=== PATIENT | male | born 1960 | race Caucasian/White ===

== ENCOUNTER 2016-12-12 07:56 | Inpatient (IN) ==
--- NOTE | 2016-12-12 08:32 | PROVIDER DOCUMENTATION ---
HPI-General Adult - General Chief Complaint: Back Pain Stated Complaint: BACK PAIN Time Seen by Provider: 12/12/16 08:26 Source: patient, family Allergies/Adverse Reactions: Patient Allergies Allergy/AdvReac Type Severity Reaction Status Date / Time Penicillins Allergy ANAPHYLAXIS Verified 12/12/16 08:07 Home Medications: Home Medication List Medication Instructions Recorded Confirmed Last Taken Type Morphine E.r. [Ms Contin] 10 mg PO DIRECTED 12/12/16 12/12/16 Unknown History Morphine E.r. [Ms Contin] 60 mg PO Q12HR 12/12/16 12/12/16 Unknown History Morphine E.r. [Ms Contin] 100 mg PO Q12HR 12/12/16 12/12/16 Unknown History Ondansetron HCl [Zofran] 4 mg PO DIRECTED 12/12/16 12/12/16 Unknown History - History of Present Illness -Gen Adult Nature of Presenting Problems: pt is having much pain and was at Dr Acuña's office yesterday and he is not getting relief. he is taking his morning pain medication right now, but needs something else. Dr Acuña was consulted and he said to admit for pain control and radiation rx for pain control Similar Symptoms Previously?: Yes (seen yesterday in oncology) Recently seen or treated by another doctor?: Yes Review of Systems - Adult - REVIEW OF SYSTEMS - ADULT Constitutional: denies: chills, fever Eyes: denies: discharge, blurred vision Ears, Nose, Mouth & Throat: denies: ear pain, nose pain Cardiovascular: denies: chest pain, irregular heart rate Respiratory: denies: chronic cough, shortness of breath Gastrointestinal: denies: abdominal pain, constipation, diarrhea, nausea, vomiting Genitourinary: denies: discharge, flank pain, hesitency Musculoskeletal: denies: back pain, joint pain, neck pain Integumentary: denies: hair loss, mole changes Neurological: denies: ataxia, numbness Psychiatric: reports: no symptoms reported Endocrine: denies: goiter, cold intolerance, heat intolerance Hematologic/Lymphatic: denies: low blood count, lymphedema Allergic/Immunologic: denies: eczema, frequent infections Past History - Adult - PAST MEDICAL HISTORY-ADULT Review of Records: reports: Nursing Assessment Review, Medications Reviewed - FAMILY HISTORY Family History: other (lymph node bx) Physical Exam-General - PHYSICAL EXAM-ADULT Initial Vital Signs Reviewed: Yes - CONSTITUTIONAL General Appearance: appears well, alert, severe distress - EYES Eyes: PERRL/EOMI, pink conjunctivae - HEAD, EARS, NOSE, MOUTH & THROAT HENMT: normocephalic/atraumatic, moist mucous membranes, normal ENT inspection, TMs normal - NECK Neck: non-tender, full range of motion, supple - RESPIRATORY Respiratory: chest non-tender, lungs clear, normal breath sounds, no pleuratic chest pain, no respiratory distress, no accessory muscle use - CARDIOVASCULAR Cardiovascular: normal peripheral pulses, regular rate, rhythm, no edema, no gallop, no JVD, no murmur - GASTROINTESTINAL (ABDOMEN) Abdominal Exam: normal bowel sounds, non tender, soft, no organomegaly, no pulsatile mass - LYMPHATIC Lymphatic: no adenopathy - MUSCULOSKELETAL Back Exam: normal inspection, no CVA tenderness, other (severe back pain with vertebral mets areas marked on back) - SKIN Integumentary: normal color, normal turgor, warm/dry - NEUROLOGIC Neurologic: knife grinder II-XII nml as tested, grossly normal, no motor/sensory deficits - PSYCHIATRIC Psych/Mental Status: normal mood/affect, normal thought content, normal thought process, oriented x 3 Progress - PLAN OF CARE/RESULTS Progress/Plan/Lab Results: Vital Signs - 8 hr 12/12/16 08:02 Temperature 97.3 F L Pulse Rate 73 Respiratory Rate 18 Blood Pressure 185/113 O2 Sat by Pulse Oximetry 96 - CONSULTS/PCP/HOSPITALIST Notification #1 *Consult/PCP/Hospitalist*: Dr Acuña Time Discussed: 08:52 Consult Disposition: Admit (needs to be given pain control and get radiation therapy consult FELY) #2 Consult: Dr Norris Time Discussed: 09:04 Consult Disposition: Admit Departure - Departure Date of Disposition Decision: 12/12/16 Time of Disposition Decision: 09:06 DIAGNOSIS: Bone metastasis Melanoma Qualifiers: Melanoma location: unspecified site Qualified Code(s): C43.9 - Malignant melanoma of skin, unspecified Disposition: ADMITTED INPATIENT Certified Medical Emergency: Emergent Condition: Fair Referrals and Follow-Ups: Roderick Albrecht MD [Primary Care Provider] - - Critical Care Note This patient required my direct & personal management of CC.: No Attestation - Physician/ LAITH Attestation The physician spent face to face time with patient:: Yes Advanced Practice Provider documentation review:: Supervising physician onsite and consulted in the evaluation and care of this patient. The physician did have a face to face encounter with the patient.
[2016-12-12] MEDS ORDERED: NS 1,000 ML IV ONE (08:49)
[2016-12-12] MEDS ORDERED: MORPHINE IV ONE (08:49)
[2016-12-12] MEDS ORDERED: ZOFRAN IV ONE (08:50)
[2016-12-12 09:39] LABS: AGAP 9; ALBUMIN 3.5 g/dL (3.5-5.0); ALKALINE PHOSPHATASE 120 U/L (32-122); BUN 13 mg/dL (8-22); CALCIUM 9.1 mg/dL (8.8-10.2); CHLORIDE 97 mmol/L (98-107); COSMO 271; GOT 21 U/L (10-34); GPT 27 U/L (10-44); POTASSIUM 3.4 mmol/L (3.5-5.1); SODIUM 135 mmol/L (136-145); TCO2 29 mmol/L (25-35); TOTAL PROTEIN 6.7 g/dL (6.3-8.3)
[2016-12-12] MEDS ORDERED: DILAUDID IV ONE (10:19)
[2016-12-12 12:08] LABS: MANUAL DIFF NEEDED? NO
[2016-12-12 12:09] LABS: BASO% 0.4 % (0.0-0.8); EOS# 0.64 X1000 (0.0-0.7); EOS% 6.2 % (0.0-10.0); HEMATOCRIT 43.7 % (42.0-52.0); HEMOGLOBIN 14.4 g/dL (14.0-18.0); IMM GRAN# 0.03 X1000 (0.0-0.04); IMM GRAN% 0.3 % (0.0-0.5); LYMPH# 1.33 X1000 (1.2-3.4); LYMPH% 12.8 % (20.5-51.1); MCH 30.3 PG (27-31); MONO# 1.15 X1000 (0.11-0.59); MONO% 11.1 % (1.7-9.3); MPV 10.4 FL (7.4-10.4); NEUT% 69.2 % (42.2-75.2); PLT 241 X1000 (130-400); RBC 4.75 XMIL (4.7-6.1)
[2016-12-12] MEDS ORDERED: PHENERGAN IV PRN (12:13)
[2016-12-12] MEDS ORDERED: SODIUM CHLORIDE 0.9% INJ PRN (12:13)
[2016-12-12] MEDS ORDERED: DILAUDID IV PRN (12:13)
[2016-12-12] MEDS ORDERED: ZOFRAN IV PRN (12:14)
[2016-12-12] MEDS ORDERED: SODIUM CHLORIDE 0.9% INJ SCH (12:15)
[2016-12-12] MEDS ORDERED: PROTONIX IV SCH (12:15)
[2016-12-12] MEDS ORDERED: MS CONTIN PO SCH ×2 (12:30→12:59)
[2016-12-12 12:56] LABS: AGAP 9; ALBUMIN 3.6 g/dL (3.5-5.0); ALKALINE PHOSPHATASE 125 U/L (32-122); BUN 12 mg/dL (8-22); CALCIUM 9.4 mg/dL (8.8-10.2); CHLORIDE 97 mmol/L (98-107); COSMO 273; GOT 18 U/L (10-34); GPT 26 U/L (10-44); MAGNESIUM 1.8 mg/dL (1.5-2.7); POTASSIUM 3.7 mmol/L (3.5-5.1); SODIUM 136 mmol/L (136-145); TCO2 30 mmol/L (25-35); TOTAL PROTEIN 7.1 g/dL (6.3-8.3)
[2016-12-12] MEDS ORDERED: ZOFRAN 16 MG in NS 50 ML IV SCH (13:00)
[2016-12-12] MEDS ORDERED: MS CONTIN PO ONE (13:23)
[2016-12-12] MEDS: MORPHINE IV PRN ×5 (17:38→23:50)
--- NOTE | 2016-12-12 19:54 | HISTORY AND PHYSICAL ---
CHIEF COMPLAINT: Back pain. HISTORY OF PRESENT ILLNESS: This is a 56-year-old male with a history of metastatic malignant melanoma with bony metastases. He presents to the emergency room complaining of severe back pain. Mr. Funez is a patient of Dr. Acuña and his pain has been controlled on MS Contin, although over the past 3-4 days he has been in a pain crisis, which required increasing his morphine. With this increase, he had intractable nausea and vomiting. He was seen at Dr. Acuña's office, given IV Zofran as well as IV fluids yesterday. Pain was brought under control and he went home comfortable. Through this morning, his pain returned. Therefore, he presented to the emergency room. He was given 10 mg of morphine IV, followed by 2 of Dilaudid and at the time of my interview, the patient is asleep and history is taken from the chart, Dr. Acuña and the patient's son. PAST MEDICAL HISTORY: 1. Metastatic malignant melanoma. 2. Pre-diabetes. PAST SURGICAL HISTORY: Appendectomy, cholecystectomy, biopsy. HABITS: Tobacco use. ALLERGIES: Penicillins which cause anaphylaxis. HOME MEDICATIONS: Zofran 4 mg as directed. MS Contin 160 mg every 12 hours with 10 mg as directed. REVIEW OF SYSTEMS: A 14 point review of systems with pertinent positives stated in the HPI. All others are negative per the patient's family members and chart. PHYSICAL EXAMINATION: GENERAL: This is a 56-year-old male who is lying in the bed asleep at present. VITAL SIGNS: Blood pressure is 170/90, with a heart rate of 70, respirations are 18, temperature is 98.9 degrees with room air saturations 93-95%. CARDIOVASCULAR: Regular rate and rhythm. S1 and S2 appreciated. No rubs, murmurs, or gallops. PULMONARY: Breath sounds are clear. No increased work of breathing noted. Chest does rise and fall symmetrically to respiration. GASTROINTESTINAL: Abdomen is soft, nondistended, with bowel sounds in all 4 quadrants. EXTREMITIES: No clubbing, cyanosis, or edema. Pulses are palpable x4. SKIN: Warm and dry with good turgor. DIAGNOSTICS: WBC is 10.3 with hemoglobin 14.4, hematocrit 43.7, and platelets of 241,000. Sodium is 136, potassium 3.7, BUN 13, creatinine 0.7 with a glucose of 116. ASSESSMENT AND PLAN: 1. Metastatic malignant melanoma with metastasis. 2. Severe back pain secondary to #1. 3. Nausea and vomiting secondary to pain. 4. History of pre-diabetes. 5. Tobacco use. CONSULTATION: I did speak to Dr. Acuña. We discussed the patient's plan of care. We have increased his MS Contin to 210 mg q.12 hours scheduled with morphine 10 mg IV p.r.n. breakthrough. We will continue with IV hydration. Give Zofran 16 mg IV every 12 hours scheduled with Phenergan 12.5 q.4 hours p.r.n. we will give Protonix. We will also continue IV hydration. We will trend labs. We will consult Dr. Soumya Ribeiro for radiation therapy which Dr. Acuña feels will assist with pain control. Further treatments pending hospital course. Dictated by NGUYEN Irizarry for Eugene Norris MD cc: NGUYEN Irizarry MD
[2016-12-12] MEDS: ZOFRAN 16 MG in NS 50 ML IV SCH (23:50)
[2016-12-13] MEDS: MORPHINE IV PRN ×7 (00:51→10:44)
[2016-12-13 06:42] LABS: HEMATOCRIT 42.7 % (42.0-52.0); HEMOGLOBIN 14.4 g/dL (14.0-18.0); MCHC 33.7 g/dL (33-37); MPV 9.6 FL (7.4-10.4); RBC 4.64 XMIL (4.7-6.1)
[2016-12-13 06:52] LABS: AGAP 12; BUN 12 mg/dL (8-22); CALCIUM 9.2 mg/dL (8.8-10.2); CHLORIDE 96 mmol/L (98-107); COSMO 272; POTASSIUM 3.7 mmol/L (3.5-5.1); SODIUM 136 mmol/L (136-145); TCO2 28 mmol/L (25-35)
[2016-12-13] MEDS: MS CONTIN PO SCH ×2 (09:57→21:27)
[2016-12-13] MEDS ORDERED: DILAUDID IV ONE ×3 (11:14→17:48)
[2016-12-13] MEDS: DILAUDID IV PRN ×8 (12:10→17:12)
[2016-12-13] MEDS: DECADRON IV SCH ×2 (12:53→21:28)
[2016-12-13] MEDS: CYMBALTA PO SCH (12:53)
[2016-12-13] MEDS ORDERED: PNEUMOVAX 23 IM ONE (14:54)
--- NOTE | 2016-12-13 14:54 | PROGRESS NOTE ---
DATE: 12/13/2016 Today Mr. Funez refers to be doing a little better. Has been evaluated by both Dr. Acuña and radiation oncologist and there is a plan to get him radiation today. OBJECTIVE: Vital signs: Blood pressure is 176/101, respirations 16, pulse is 75, temperature 98.6 degrees. General: Mr. Funez is a 56-year-old male. He is in bed, not seemingly distress. HEENT: Mucosa is pink and moist. Anicteric. Acyanotic. Neck: Supple. Chest: Clear. Cardiovascular: Regular rate and rhythm. Abdomen: Soft, nontender. Extremities: No pedal edema. CIVIL RIGHTS ATTORNEY: Patient is awake. Alert and oriented. There is no focal neurological deficit. Musculoskeletal: Patient does have extreme pain in the left shoulder. LABORATORY DATA: WBC is 9.67, hemoglobin is 14.4, platelet count of 230,000. Chemistry is 136, potassium is 3.7, chloride is 96, bicarbonate is 28. ASSESSMENT: 1. Intractable musculoskeletal pain secondary due to bone metastasis. 2. Metastatic malignant melanoma. 3. Tobacco use. 4. Nausea, vomiting secondary to pain medications. 5. Chronic pain syndrome. So today Mr. Funez has been started on Dilaudid 2 mg every 30 minutes by the oncologist who is to trying help with his intractable pain. He is also on MS Contin 210 p.o. q.12. The patient is going to get radiation this afternoon and will follow up with further recommendations from the other subspecialties. Will discuss with Dr. Acuña about the possibility of putting the patient on fentanyl patch to help with the pain management. cc: Misael Fitzgerald MD
[2016-12-13] MEDS: SODIUM CHLORIDE 0.9% INJ SCH (15:43)
[2016-12-13] MEDS: PROTONIX IV SCH (15:43)
--- NOTE | 2016-12-13 15:59 | CONSULTATION ---
DATE OF CONSULTATION: 12/13/2016 REASON FOR CONSULTATION: The patient is known to us for metastatic melanoma. HISTORY OF PRESENT ILLNESS: This patient that is known to us with history of metastatic melanoma with bony metastases, recently started on Yervoy and Opdivo. He received his 1st dose on 12/04/16. He was seen at our clinic on the 8th of this month after having severe pain and nausea. He had been taking at home MS Contin 160 mg b.i.d. and Dilaudid on a p.r.n. basis. In the clinic he was in severe pain and he was given some IV morphine and Ativan as well as some normal saline and Zofran. His symptoms improved and patient was sent home. However, he returned to the emergency room the following day with worsening pain mostly to his back area. He also had some intractable nausea and vomiting. Denies fevers, chills, new lumps, bumps, bone pain. Patient is currently being controlled for his pain by his MS Contin which has been increased to 210 mg q.12 hours. He has been on morphine 10 mg IV q.1 hour p.r.n. We have now added Dilaudid 2 mg every 30 minutes p.r.n. He is also getting Phenergan, Protonix and Zofran as scheduled. He has also been evaluated by Radiation Oncology and is to begin radiation therapy to his T-spine today. REVIEW OF SYSTEMS: Negative unless indicated in the HPI. PAST MEDICAL HISTORY: Metastatic melanoma to the bones with bony metastases. He has had 1 dose of Yervoy and Opdivo. Intractable pain and nausea. SOCIAL/FAMILY HISTORY: Patient has good family support. 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 Denies alcohol or illicit drug use. ALLERGIES: Penicillin, which is anaphylactic reaction. MEDICATIONS: MS Contin and Zofran. PHYSICAL EXAMINATION: General: This is a male, who is frail, chronically ill- appearing. Vital Signs: Stable. Cardiovascular: S1, S2 audible to auscultation with no heaves, lifts, thrills. Pulmonary: Breath sounds clear. Normal respiratory effort. Abdomen: Soft, nondistended. Positive bowel sounds. Skin: No petechiae, ecchymosis or bruising. Extremities: There is no edema. Musculoskeletal: Moves all extremities. Neurologic: Alert and oriented x3. Psychiatric: Appropriate to the situation. DIAGNOSTIC DATA: WBC is 9.67, hemoglobin 14.4, hematocrit 42.7, platelet count 230,000. Sodium 136, potassium 3.7, BUN 12, creatinine 0.7. ASSESSMENT AND PLAN: 1. Metastatic melanoma with bony metastases. He has had 1 dose Opdivo and Yervoy. Radiation Oncology has seen the patient and is planning to begin urgent radiation therapy today. Patient is also getting IV Decadron. 2. Intractable pain. Continue Ms Contin, IV morphine and IV Dilaudid. Also plans for radiation as above. We will continue to follow and monitor closely. 3. Nausea. Continue scheduled Zofran and Phenergan. Dictated by NGUYEN Pink for Bruno Acuña MD cc: NGUYEN Pink MD [facility]
[2016-12-13] MEDS ORDERED: NARCAN IV PRN (18:06)
[2016-12-13] MEDS: DILAUDID PCA VIAL IV PRN ×2 (18:26→23:42)
[2016-12-13] MEDS: LR 1,000 ML IV SCH (18:26)
[2016-12-13] MEDS ORDERED: DILAUDID IV PRN (19:40)
[2016-12-13] MEDS: ZOFRAN 16 MG in NS 50 ML IV SCH (23:04)
[2016-12-14] MEDS: SODIUM CHLORIDE 0.9% INJ PRN ×2 (03:15→20:56)
[2016-12-14] MEDS: PHENERGAN IV PRN ×3 (03:15→20:55)
[2016-12-14] MEDS: DECADRON IV SCH ×3 (05:21→20:56)
[2016-12-14] MEDS: DILAUDID PCA VIAL IV PRN ×2 (06:24→19:08)
[2016-12-14] MEDS: DILAUDID IV PRN ×5 (07:02→18:48)
[2016-12-14] MEDS: CATAPRES PO PRN ×2 (09:03→20:47)
[2016-12-14] MEDS: LIDODERM TOP PRN (10:03)
[2016-12-14] MEDS: MS CONTIN PO SCH ×2 (10:18→20:47)
[2016-12-14] MEDS: CYMBALTA PO SCH (10:34)
[2016-12-14] MEDS: PROTONIX IV SCH (13:35)
--- NOTE | 2016-12-14 14:37 | PROGRESS NOTE ---
DATE: 12/14/2016 Today Mr. Funez referred to be doing a little better. However early on this morning they said his blood pressures have been very high. The patient is currently on a PROFESSOR OF VISUAL ARTS pump with Dilaudid because of very uncontrolled pain. OBJECTIVE: Blood pressure is 185/103, pulse of 70, respirations 14, temperature is 98.3 degrees.General: Mr. Funez is a 56-year-old male. He is in bed, semi drowsy due to medications. HEENT: Mucosa is pink and moist. Anicteric. Acyanotic. Neck: Supple. Chest: Clear. Cardiovascular: Regular rate and rhythm. There is no murmurs, no rubs. Abdomen: Soft, nontender. Extremities: No pedal edema. MAINTENANCE MGR: Patient is drowsy but easily arousable. Follows commands and sustains rational conversation. LABORATORY DATA: There is no lab work for today. CURRENT MEDICATIONS INCLUDE: 1. Klonopin. 2. Decadron 4 mg IV q.8. 3. Cymbalta 60 mg once daily. 4. PROFESSOR OF VISUAL ARTS pump with Dilaudid. 5. Lactate ringers. 6. Phenergan p.r.n. So today I spoke extensively with the sister for Mr. Funez, the son and another family member who was in the room and the sister was very vocal and seems to know a lot about Mr. Funez's disease and is of the opinion that Mr. Funez is probably hurting and I think we all on the page that he will probably be needing some form of line to go home with since he has been on so much pain medication and he does not seems to be controlled. ASSESSMENT: 1. 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 2. Metastatic malignant melanoma. 3. Tobacco abuse. 4. Nausea and vomiting secondary to pain medications. 5. Chronic pain syndrome. 6. Hypertension likely secondary to intractable pain. We are going to continue with the current medications. I have discussed this extensively with Dr. Acuña who is the oncologist involved. cc: Misael Fitzgerald MD
[2016-12-14] MEDS: LR 1,000 ML IV SCH (18:45)
[2016-12-14] MEDS: ZOFRAN 16 MG in NS 50 ML IV SCH (23:07)
[2016-12-15] MEDS: PHENERGAN IV PRN ×6 (02:38→22:19)
[2016-12-15] MEDS: SODIUM CHLORIDE 0.9% INJ PRN ×6 (02:39→22:19)
[2016-12-15] MEDS: DECADRON IV SCH ×3 (04:18→20:49)
[2016-12-15] MEDS: CATAPRES PO PRN (04:18)
[2016-12-15] MEDS: DILAUDID PCA VIAL IV PRN (07:40)
[2016-12-15] MEDS: DILAUDID IV PRN ×5 (07:55→18:07)
[2016-12-15] MEDS ORDERED: MS CONTIN PO SCH ×2 (09:06→09:26)
[2016-12-15] MEDS ORDERED: NORVASC PO SCH (09:15)
[2016-12-15] MEDS ORDERED: PRINIVIL PO SCH (09:15)
[2016-12-15] MEDS: CYMBALTA PO SCH (09:37)
[2016-12-15] MEDS: SODIUM CHLORIDE 0.9% INJ SCH (12:52)
[2016-12-15] MEDS: PROTONIX IV SCH (12:52)
[2016-12-15] MEDS ORDERED: DURAGESIC 25 MICROGM/HR PATCH TD SCH (14:15)
--- NOTE | 2016-12-15 15:00 | PROGRESS NOTE ---
DATE: 12/15/2016 SUBJECTIVE: Today, Mr. Funez continues to be very obtunded. He, however, said he was doing fine. There was a daughter at the bedside at the time of the interview. OBJECTIVE: VITAL SIGNS: Blood pressure is 211/115, pulse 93, respirations 17, temperature 97.9. GENERAL: Mr. Funez is a 56-year-old male. He is in bed and does not seem to be in remarkable distress. HEENT: Mucosa is pink and moist. Anicteric and acyanotic. NECK: Supple. CHEST: Good air entry bilaterally. No crepitations. No rhonchi. CARDIOVASCULAR: Regular rate and rhythm. There are no murmurs, no rubs, no gallops. ABDOMEN: Soft. Nontender. Bowel sounds are present. EXTREMITIES: No pedal edema. CENTRAL NERVOUS SYSTEM: Patient is drowsy. He is, however, able to open his eyes to voice and to command. He occasionally tries to grab things that are not there and he will say certain things that nobody seems to understand. LABORATORY DATA: None for today. ASSESSMENT: 1. Intractable musculoskeletal pain secondary to bony metastases. 2. Metastatic malignant melanoma. 3. Altered mental status, likely due to metabolic encephalopathy. 4. Tobacco abuse. 5. Nausea and vomiting secondary to pain medications. 6. Hypertension. 7. Chronic pain syndrome. Patient is needing a lot of pain medications at this point to keep him comfortable. PLAN: The patient is having nausea and vomiting, which I think is secondary to the narcotics. He gets Phenergan to mitigate this. We are going to switch all his p.o. medications or withhold them just because of the risk of aspiration. We will use fentanyl patch to control the blood pressure and p.r.n. labetalol for that. I have discontinued the MS Contin, which is also p.o., and put him on fentanyl patch 25 mcg per hour and increase accordingly. Patient is on Dilaudid pump, as well. We are going to start the patient on Clinimix with lipid infusion since he has not been able to tolerate any feeding. There is a plan to send the patient to [facility] on Saturday for re-sketching where radiation will be given. We did an EKG this morning, which just showed possible left ventricular hypertrophy, which gives the impression that Mr. Funez probably has a longstanding blood pressure issue that has not been addressed in the past. cc: Misael Fitzgerald MD MTDD
[2016-12-15] MEDS: LIDODERM TOP PRN (15:40)
[2016-12-15] MEDS: LIPOSYN 20% 250 ML IV SCH ×2 (15:40→17:44)
[2016-12-15] MEDS: CLINIMIX E 4.25%-5% SOLUTION 1,000 ML IV SCH ×4 (15:41→18:06)
[2016-12-15] MEDS: CATAPRES-TTS-1 TD SCH (18:03)
[2016-12-16] MEDS: LABETALOL IV PRN (01:52)
[2016-12-16] MEDS: CLINIMIX E 4.25%-5% SOLUTION 1,000 ML IV SCH ×2 (05:23→18:42)
[2016-12-16] MEDS: DECADRON IV SCH ×3 (05:23→21:41)
[2016-12-16] MEDS: DILAUDID PCA VIAL IV PRN (09:10)
--- NOTE | 2016-12-16 11:03 | PROGRESS NOTE ---
DATE: 12/16/2016 HISTORY OF PRESENT ILLNESS: The patient reports that he had a better pain control night. He got out of bed and went to the bathroom with some discomfort, but much manageable. Nurse reports that he has received 39 mg of Dilaudid over the last 24 hours. Due to his nausea, MS Contin has been discontinued, and he was started on a small dose of fentanyl patch yesterday. He has not had a bowel movement so far, but does not feel constipated at this time. PHYSICAL EXAMINATION: General: The patient is lying in bed and appears a little more comfortable than before. Vital Signs: Temperature 97.7 degrees, pulse 75, blood pressure 173/101. HEENT: Eyes anicteric. Mucous membranes appear moist. Cardiac: Regular rate and rhythm. Normal S1, S2. Chest: Clear to auscultation. Abdomen: Soft, nontender, without hepatosplenomegaly or masses. Extremities: Without edema. ASSESSMENT AND PLAN: 1. Metastatic melanoma, recently started on Yervoy/Opdivo. 2. Severe thoracic back pain due to bone metastasis. Started on radiation. 3. Pain management. Discontinue MS Contin due to significant nausea. Increase Duragesic patch to 75 mcg. Continue Dilaudid patient-controlled analgesia as you are doing. 4. Deep venous thrombosis prophylaxis. Start Lovenox. cc: Bruno Acuña MD MTDD
[2016-12-16] MEDS ORDERED: DURAGESIC 50 MICROGM/HR PATCH TD SCH (11:15)
[2016-12-16] MEDS: LOVENOX SUBQ SCH (13:23)
[2016-12-16] MEDS: PROTONIX IV SCH (13:24)
[2016-12-16] MEDS: SODIUM CHLORIDE 0.9% INJ SCH (13:24)
[2016-12-16] MEDS: CYMBALTA PO SCH (13:24)
[2016-12-16] MEDS: LIPOSYN 20% 250 ML IV SCH (13:26)
--- NOTE | 2016-12-16 14:53 | PROGRESS NOTE ---
DATE: 12/16/2016 SUBJECTIVE: Today Mr. Funez referred to be doing a little better, has not had that much of nausea or vomiting. OBJECTIVE: Vital signs: Blood pressure is 153/107, pulse of 80, respirations 16, temperature is 98.1 degrees. General: Mr. Funez is a 56-year-old male. He was in bed. He did not seem to be in any remarkable cardiopulmonary distress. Mucosa is pink and moist. Anicteric and acyanotic. Neck: Supple. Chest: Good air entry bilaterally. No crepitations. No rhonchi. Cardiovascular: Regular rate and rhythm. There are no murmurs, no rubs, no gallops. Abdomen: Soft, nontender. Extremities: No pedal edema. LINE UP EXAMINER: Patient is drowsy, but easily arousable and is able to participate in some rational conversation. LABORATORY DATA: No laboratory work for today. ASSESSMENT: 1. Intractable musculoskeletal pain secondary to bone metastases. Patient is currently on a fentanyl patch. This has been increased to 75 today by his primary oncologist and also on p.r.n. IV medication. 2. Metastatic malignant melanoma. The patient follows up with Dr. Acuña. 3. Altered mental status likely due to metabolic encephalopathy. 4. Tobacco abuse. 5. Nausea, vomiting secondary to pain medication. This has subsided. 6. Hypertension, improved. 7. Chronic pain syndrome. 8. Nutritional needs. Patient is tolerating the IV Clinimix with the lipid infusion. 9. Mr. Funez seems to be doing a little better. Pain patch has been increased. We are going to continue with that. Hopefully we can restart some of his p.o. medications if he tolerates it and eventually take him off the IV pain medications. cc: Misael Fitzgerald MD
[2016-12-16] MEDS: ZOFRAN 16 MG in NS 50 ML IV SCH ×3 (23:20)
[2016-12-17] MEDS: LABETALOL IV PRN (04:40)
[2016-12-17] MEDS: DECADRON IV SCH ×3 (04:40→20:20)
[2016-12-17] MEDS: CLINIMIX E 4.25%-5% SOLUTION 1,000 ML IV SCH ×3 (05:55→19:03)
[2016-12-17] MEDS: DILAUDID PCA VIAL IV PRN ×2 (05:56→13:45)
--- NOTE | 2016-12-17 06:31 | EKG Report ---
Test Performed on : 12/15/2016 10:42:32 AM Test Reason : HTN Blood Pressure : / mmHG Vent. Rate : 092 BPM Atrial Rate : 092 BPM P-R Int : 106 ms QRS Dur : 090 ms QT Int : 394 ms P-R-T Axes : 057 061 055 degrees QTc Int : 487 ms Sinus rhythm. with short DC Possible Left atrial enlargement Nonspecific ST and T wave abnormality Abnormal ECG No previous ECGs available Confirmed by Ruel Grant DO ([id number]) on 12/18/2016 7:22:34 AM
[2016-12-17 06:34] LABS: MANUAL DIFF NEEDED? NO
[2016-12-17 06:51] LABS: BASO% 0.1 % (0.0-0.8); HEMOGLOBIN 15.2 g/dL (14.0-18.0); IMM GRAN# 0.04 X1000 (0.0-0.04); IMM GRAN% 0.3 % (0.0-0.5); LYMPH# 1.21 X1000 (1.2-3.4); LYMPH% 8.9 % (20.5-51.1); MCV 90.9 FL (81-99); MONO# 1.19 X1000 (0.11-0.59); MONO% 8.8 % (1.7-9.3); MPV 9.8 FL (7.4-10.4); NEUT% 81.9 % (42.2-75.2); PLT 280 X1000 (130-400); RBC 5.06 XMIL (4.7-6.1)
[2016-12-17 07:05] LABS: AGAP 12; ALBUMIN 3.5 g/dL (3.5-5.0); ALKALINE PHOSPHATASE 85 U/L (32-122); BUN 27 mg/dL (8-22); CALCIUM 9.4 mg/dL (8.8-10.2); CHLORIDE 93 mmol/L (98-107); COSMO 277; GOT 13 U/L (10-34); GPT 14 U/L (10-44); MAGNESIUM 2.1 mg/dL (1.5-2.7); POTASSIUM 4.1 mmol/L (3.5-5.1); SODIUM 135 mmol/L (136-145); TCO2 30 mmol/L (25-35); TOTAL BILIRUBIN 0.58 mg/dL (0.20-1.00); TOTAL PROTEIN 6.8 g/dL (6.3-8.3)
[2016-12-17 09:02] LABS: INR 1.2; PROTIME 12.8 Seconds (9.2-11.7)
[2016-12-17] MEDS: LOVENOX SUBQ SCH (09:08)
[2016-12-17] MEDS: CYMBALTA PO SCH (09:08)
[2016-12-17] MEDS ORDERED: NS 250 ML ONE (09:40)
[2016-12-17] MEDS: PROTONIX IV SCH (11:33)
[2016-12-17] MEDS: SODIUM CHLORIDE 0.9% INJ SCH (11:34)
[2016-12-17] MEDS: PHENERGAN IV PRN (12:07)
[2016-12-17] MEDS: DILAUDID IV PRN (12:07)
[2016-12-17] MEDS ORDERED: DURAGESIC 50 MICROGM/HR PATCH TD ONE (12:45)
[2016-12-17] MEDS ORDERED: MISC. PHARMACY COMMUNICATION SCH (13:00)
[2016-12-17] MEDS: LIPOSYN 20% 250 ML IV SCH (14:10)
--- NOTE | 2016-12-17 17:27 | PROGRESS NOTE ---
DATE: 12/17/2016 SUBJECTIVE: Today Mr. Funez referred to be doing fairly better than days before. He is not vomiting anymore and he actually requested to see if we can feed him. OBJECTIVE: Vital signs: Blood pressure is 168/105, pulse of 73, respirations 18, temperature is 99.0 degrees. General Examination: Mr. Funez is a 56-year-old male. He was in bed. He does not seem to be in any musculoskeletal distress. HEENT: Mucosa is pink and moist. Anicteric. Acyanotic. Neck: Supple. Chest: Good air entry bilaterally. No crepitations. No rhonchi. Cardiovascular: Regular rate and rhythm. Abdomen: Soft, nontender. Extremities: No pedal edema. ASSEMBLER SURGICAL GARMENT: Patient is more alert today. He is more conversational. I did not see any involuntary jerking movements. LABORATORY DATA: WBC at 13.58, hemoglobin is 15.2, platelet count of 280,000. Chemistry is reviewed. Sodium is 135, potassium is 4.1, chloride is 93. ASSESSMENT: 1. Intractable musculoskeletal pain secondary to bone metastases. Patient is now on fentanyl patch and has being using sparingly the IV medications. 2. Metastatic malignant melanoma. Patient is getting radiation. 3. Altered mental status due to metabolic encephalopathy. This is progressively improving. 4. Tobacco abuse. Patient has been counseled. 5. Nausea and vomiting secondary to pain. Medication is improving. Patient is actually requesting to eat. 6. Hypertension, improved. 7. Chronic pain syndrome. 8. Nutritional needs. The patient is tolerating the CliniMix with the lipid infusion and he was also tolerating liquid diet. We are not going to advance this to a GI soft diet and progressively advance as tolerated. So in general I think Mr. Funez is doing better, currently on 75 mcg of fentanyl patch and on FIRE TRUCK DRIVER, which he uses very sparingly. We are going to continue to progressively wean him off the FIRE TRUCK DRIVER pump and see if we can restart him on the p.o. medications on top of the fentanyl patch. We will start to feed him and gradually advance this as we will cut down on the CliniMix and lipid infusion. cc: Misael Fitzgerald MD
[2016-12-18] MEDS: CLINIMIX E 4.25%-5% SOLUTION 1,000 ML IV SCH ×5 (00:02→21:41)
[2016-12-18] MEDS: DILAUDID PCA VIAL IV PRN ×3 (02:10→21:54)
[2016-12-18] MEDS: DECADRON IV SCH ×3 (04:19→21:43)
[2016-12-18] MEDS: MIRALAX PO SCH (08:59)
[2016-12-18] MEDS: CYMBALTA PO SCH (08:59)
[2016-12-18] MEDS: LOVENOX SUBQ SCH (09:00)
[2016-12-18] MEDS: SODIUM CHLORIDE 0.9% INJ PRN (12:01)
[2016-12-18] MEDS: PROTONIX IV SCH (12:02)
[2016-12-18] MEDS: DILAUDID IV PRN ×3 (12:35→18:48)
[2016-12-18] MEDS: PHENERGAN IV PRN (12:36)
[2016-12-18] MEDS ORDERED: DURAGESIC 100 MICROGM/HR PATCH TD SCH (13:15)
[2016-12-18] MEDS: LIPOSYN 20% 250 ML IV SCH (14:56)
--- NOTE | 2016-12-18 15:38 | PROGRESS NOTE ---
DATE: 12/18/2016 This morning, Mr. Funez looked more alert and more conversational. Expressed a lot of appreciation for all the care that he has received. OBJECTIVE: Vital signs: Blood pressure is 160/100, pulse of 70, respirations 17, temperature 98.7 degrees. General: Mr. Funez is a 56-year-old male. He was in bed. Did not look in any distress. HEENT: Mucosa is pink and moist. Anicteric. Acyanotic. Neck: Supple. Chest: Good air entry bilaterally. No crepitations. No rhonchi. Cardiovascular: Regular rate and rhythm. There is no murmurs. No rubs, no gallops. Abdomen: Soft, nontender. Extremities: No pedal edema. LAST TRIMMER: Patient is awake, alert and conversational. Musculoskeletal: Patient still has mild tenderness and pain to the left shoulder. LABORATORY DATA: None for today. ASSESSMENT: 1. 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 I spoke extensively today with Dr. Acuña who is the patient's Heme-Onc specialist and he has made a decision to go up on the fentanyl patch to 100 mcg in an attempt to wean him off the IV Dilaudid pump. 2. Metastatic malignant melanoma. Patient had a couple sessions of radiation during the hospital stay. 3. Altered mental status due to metabolic encephalopathy. This is improved. 4. Tobacco abuse. Patient has been counseled. 5. Nausea and vomiting secondary to medication side effects improved. 6. Hypertension. This is a lot better. We are still going to make some changes to the medications to have a better blood pressure control. 7. Nutritional needs. Patient is tolerating his GI soft diet. We will be able to advance this to regular diet and gradually also come off the Clinimix. So in general I think Mr. Funez is a lot better today. Fentanyl patch will be increased to 100 and we will also advance his diet to regular diet. Hopefully get him off the Clinimix by tomorrow and await further recommendations from Heme-Onc in terms of the DAIRY NUTRITIONIST pump. cc: Misael Fitzgerald MD
[2016-12-18] MEDS: ZOFRAN 16 MG in NS 50 ML IV SCH ×3 (21:42)
[2016-12-19] MEDS: ZOFRAN 16 MG in NS 50 ML IV SCH (06:14)
[2016-12-19] MEDS: CLINIMIX E 4.25%-5% SOLUTION 1,000 ML IV SCH ×2 (06:15→11:31)
[2016-12-19] MEDS ORDERED: DURAGESIC 100 MICROGM/HR PATCH TD SCH ×2 (08:00→13:46)
[2016-12-19 08:47] LABS: MANUAL DIFF NEEDED? NO
[2016-12-19 08:51] LABS: BASO% 0.1 % (0.0-0.8); EOS# 0.01 X1000 (0.0-0.7); EOS% 0.1 % (0.0-10.0); HEMATOCRIT 43.7 % (42.0-52.0); HEMOGLOBIN 14.1 g/dL (14.0-18.0); IMM GRAN# 0.07 X1000 (0.0-0.04); IMM GRAN% 0.6 % (0.0-0.5); LYMPH# 1.14 X1000 (1.2-3.4); LYMPH% 9.2 % (20.5-51.1); MCH 30.4 PG (27-31); MCHC 32.3 g/dL (33-37); MCV 94.2 FL (81-99); MONO# 1.37 X1000 (0.11-0.59); MPV 10.3 FL (7.4-10.4); PLT 241 X1000 (130-400); RBC 4.64 XMIL (4.7-6.1)
[2016-12-19] MEDS: LOVENOX SUBQ SCH (09:15)
[2016-12-19] MEDS: MIRALAX PO SCH ×2 (09:15→22:13)
[2016-12-19] MEDS: DECADRON IV SCH (09:15)
[2016-12-19] MEDS: CYMBALTA PO SCH (09:15)
[2016-12-19 10:52] LABS: AGAP 12; BUN 28 mg/dL (8-22); CALCIUM 8.8 mg/dL (8.8-10.2); CHLORIDE 97 mmol/L (98-107); COSMO 281; POTASSIUM 4.2 mmol/L (3.5-5.1); SODIUM 138 mmol/L (136-145); TCO2 29 mmol/L (25-35)
[2016-12-19] MEDS: SODIUM CHLORIDE 0.9% INJ SCH (11:30)
[2016-12-19] MEDS: PROTONIX IV SCH (11:30)
[2016-12-19] MEDS: DILAUDID IV PRN ×2 (12:18→13:56)
[2016-12-19] MEDS ORDERED: DURAGESIC 100 MICROGM/HR PATCH TD ONE ×2 (13:47→14:11)
[2016-12-19] MEDS: SODIUM CHLORIDE 0.9% INJ PRN (13:57)
[2016-12-19] MEDS: PHENERGAN IV PRN (13:57)
[2016-12-19] MEDS: DILAUDID PCA VIAL IV PRN (15:09)
[2016-12-19] MEDS: DULCOLAX PO SCH (15:27)
[2016-12-19] MEDS ORDERED: LR 1,000 ML ONE (15:35)
--- NOTE | 2016-12-19 15:52 | PROGRESS NOTE ---
DATE: 12/19/2016 SUBJECTIVE: Today Mr. Funez refers to be doing a lot better. He is tolerating his diet. No nausea, no vomiting and pain is better controlled. OBJECTIVE: Vital signs: Blood pressure is 155/93 pulse of 71, respirations 18, temperature is 98.1 degrees. General: Mr. Funez is a 56-year-old male. He is in bed. Does not seems to be in any distress. HEENT: Mucosa is pink and moist. Anicteric. Acyanotic. Neck: Supple. Chest: Good air entry bilateral. No crepitations. No rhonchi. Cardiovascular: Regular rate and rhythm. Abdomen: Soft, nontender, bowel sounds are slightly reduced. Extremities: No pedal edema. FOOD AND DRUG RESEARCH SCIENTIST: Patient is awake and alert and oriented x4. Musculoskeletal: Left shoulder pain is remarkably reduced. LABORATORY DATA: WBC is 12.45 hemoglobin is 14.1, platelet count of 241. Chemistry is reviewed and completely unremarkable. ASSESSMENT: 1. Intractable musculoskeletal pain secondary to bone metastases. Patient is currently on REFORESTATION WORKER pump and also 100 mcg fentanyl patch. I think his pain is a lot better now. Will follow up with Hematology/Oncology, who is managing his REFORESTATION WORKER to see if he can gradually come off, and then we will restart him on his oral medications. Will defer their recommendations on that regard to his Hematology/provisioning specialist. 2. Metastatic malignant melanoma. Patient is getting radiation therapy with Dr. Ribeiro. 3. Altered mental status secondary to drug side effects (narcotics). Mentation has significantly improved. 4. Tobacco abuse. Patient has been counseled. 5. Nausea and vomiting secondary to medication side effects. This has improved. Patient is actually tolerating his feedings. 6. Hypertension. Patient is on clonidine patch. We will add lisinopril for better blood pressure control. 7. Nutritional needs: Patient is now tolerating regular diet and has no more nausea and vomiting. We will therefore go ahead and discontinue the Clinimix and lipid infusion. I advised the patient to drink some more for adequate hydration. 8. Constipation. Patient has not had any bowel movements since admitted and today is day seven of admission. He has been on a lot of narcotics, so this is very likely induced by opioids. Will give him 1 dose of methylnaltrexone and also symptomatic medications for bowel movement. PLAN: In general will act consult PT to help move the patient, to help mobilize his gut. We will also get him to sit up in chair at least twice per day. Will continue to encourage him to use the enteral route for feeding. We will discontinue the Clinimix and lipid infusion for now. I think once patient is off the REFORESTATION WORKER pump, we can discharge him. cc: Misael Fitzgerald MD
[2016-12-19] MEDS ORDERED: RELISTOR SUBQ ONE (16:51)
[2016-12-19] MEDS ORDERED: DILAUDID ONE (18:12)
[2016-12-19] MEDS ORDERED: DILAUDID IV PRN ×2 (18:32→18:37)
[2016-12-19] MEDS ORDERED: DECADRON IV SCH (21:00)
[2016-12-20] MEDS: DILAUDID PCA VIAL IV PRN ×3 (00:31→17:31)
[2016-12-20] MEDS: DECADRON IV SCH (08:51)
[2016-12-20] MEDS: CYMBALTA PO SCH (08:52)
[2016-12-20] MEDS: DULCOLAX PO SCH (08:52)
[2016-12-20] MEDS: MIRALAX PO SCH ×2 (08:52→21:08)
[2016-12-20] MEDS: MILK OF MAGNESIA PO SCH (08:52)
[2016-12-20] MEDS: LOVENOX SUBQ SCH (09:20)
[2016-12-20] MEDS ORDERED: DURAGESIC 50 MICROGM/HR PATCH TD SCH (14:15)
[2016-12-20] MEDS: LR 1,000 ML IV SCH (15:50)
[2016-12-20] MEDS: SODIUM CHLORIDE 0.9% INJ SCH (15:51)
[2016-12-20] MEDS: PROTONIX IV SCH (15:51)
[2016-12-20] MEDS: DILAUDID IV PRN (15:55)
--- NOTE | 2016-12-20 16:33 | PROGRESS NOTE ---
DATE: 12/20/2016 SUBJECTIVE: The patient is sitting up in a chair. He has no complaints. He states that he has not had a bowel movement yet but he states that he just started eating about 2 days ago. OBJECTIVE: Vital Signs: Temperature 98.5 degrees, blood pressure 151/107, heart rate 87, respirations 19, O2 saturations 97% on room air. General: This is a middle- aged male, sitting in a chair in no acute distress. Head: Normocephalic, atraumatic. Heart: S1, S2. Normal. Lungs: Clear to auscultation bilaterally. No crackles. No rales. Abdomen: Positive bowel sounds. Soft, nontender, nondistended. Extremities: No edema. No cyanosis. Neurologic: The patient is alert and oriented x3. LABS: White blood cell count 12, hemoglobin 14, hematocrit 43, platelets 241, 000. Sodium 138, potassium 4.2, chloride 97, CO2 29, BUN 28, creatinine 0.8, glucose 97. ASSESSMENT AND PLAN: 1. Intractable pain secondary to bone metastasis. We will continue to follow closely. Dr. Acuña is adjusting the patient's pain medication regimen. 2. Metastatic melanoma. Continue with radiation. is following. 3. Constipation. KUB shows debris in the stomach. The patient also is constipated. Will also check a CT of the abdomen and pelvis. Will order scheduled laxatives. 4. Hypertension. Continue on a clonidine patch. Will also add Norvasc. 5. Leukocytosis. Improved. The patient is on IV Decadron so this may be the etiology of the elevated white count. 6. Deep vein thrombosis prophylaxis. Continue on Lovenox. 7. GI prophylaxis. Continue on IV protonix. cc: Donna Pascual MD [facility]
--- NOTE | 2016-12-20 18:05 | Diag Imaging Result Doc PS360 ---
EXAM: KUB ABDOMEN HISTORY: constipation TECHNIQUE: COMPARISON: None. FINDINGS: Hazy area in the mid abdomen. This likely represents a stomach which is overly distended and filled with debris/fluid. Prominent stool throughout the colon. The bowel loops are not dilated. No organomegaly. Mild scoliosis. IMPRESSION: 1.There is likely an overly distended stomach 2.Prominent constipation Electronically signed by Kd Cabrera 12/20/2016 6:02 PM
[2016-12-20] MEDS ORDERED: AMITIZA PO ONE (19:59)
[2016-12-20] MEDS: LACTULOSE PO SCH (21:08)
[2016-12-20] MEDS: NORVASC PO SCH (21:08)
--- NOTE | 2016-12-20 21:18 | Diag Imaging Result Doc PS360 ---
EXAM: CT ABDOMEN/PELVIS W/O CONTRAST HISTORY: Abdominal pain/constipation TECHNIQUE: CT abdomen and pelvis without contrast. Dose reduction protocol. COMPARISON: None. FINDINGS: There is a 3 x 5 cm chest wall mass laterally in the lower right hemithorax on the very first image. Trace left pleural fluid. There is a 2 mm noncalcified nodule inferiorly in the right middle lobe. Atelectasis is found in the left lower lobe. An additional calcified granuloma is found in the right middle lobe. There is a 5 mm noncalcified nodule in the left lower lobe. The gallbladder has been removed. Normal noncontrasted liver, spleen, pancreas, and adrenal glands. There are multiple tiny renal stones bilaterally. No perinephric inflammation. No hydronephrosis. Normal aorta. No bowel obstruction. There is stool throughout the colon. The appendix has been removed. The urinary bladder is distended and appears normal. Normal prostate. There are multiple destructive lytic lesions throughout the bones of the lumbar spine and pelvis. IMPRESSION: 1.Multiple bony metastases 2.Right chest wall lesion with noncalcified pulmonary nodules likely representing metastases 3.Cholecystectomy 4.Appendectomy 5.Constipation 6.Multiple tiny nonobstructing renal stones Electronically signed by Kd Cabrera 12/20/2016 9:16 PM
[2016-12-21] MEDS: DILAUDID PCA VIAL IV PRN ×2 (01:54→09:39)
[2016-12-21 07:32] LABS: MANUAL DIFF NEEDED? NO
[2016-12-21 07:36] LABS: IMM GRAN# 0.07 X1000 (0.0-0.04); IMM GRAN% 0.7 % (0.0-0.5)
[2016-12-21 07:55] LABS: BASO% 0.1 % (0.0-0.8); EOS# 0.27 X1000 (0.0-0.7); EOS% 2.6 % (0.0-10.0); HEMATOCRIT 45.4 % (42.0-52.0); HEMOGLOBIN 14.8 g/dL (14.0-18.0); LYMPH# 0.95 X1000 (1.2-3.4); LYMPH% 9.2 % (20.5-51.1); MCH 30.8 PG (27-31); MCHC 32.6 g/dL (33-37); MCV 94.4 FL (81-99); MONO# 1.38 X1000 (0.11-0.59); MONO% 13.4 % (1.7-9.3); NEUT% 74.7 % (42.2-75.2); PLT 169 X1000 (130-400); RBC 4.81 XMIL (4.7-6.1)
[2016-12-21 08:00] LABS: AGAP 9; ALKALINE PHOSPHATASE 68 U/L (32-122); BUN 18 mg/dL (8-22); CALCIUM 8.3 mg/dL (8.8-10.2); CHLORIDE 100 mmol/L (98-107); COSMO 275; GOT 18 U/L (10-34); GPT 30 U/L (10-44); POTASSIUM 3.6 mmol/L (3.5-5.1); SODIUM 137 mmol/L (136-145); TCO2 28 mmol/L (25-35); TOTAL BILIRUBIN 0.61 mg/dL (0.20-1.00); TOTAL PROTEIN 5.7 g/dL (6.3-8.3)
[2016-12-21] MEDS: LACTULOSE PO SCH ×2 (08:46→22:19)
[2016-12-21] MEDS: MIRALAX PO SCH ×2 (08:46→22:19)
[2016-12-21] MEDS: DECADRON IV SCH (08:46)
[2016-12-21] MEDS: DULCOLAX PO SCH (08:46)
[2016-12-21] MEDS: MILK OF MAGNESIA PO SCH (08:46)
[2016-12-21] MEDS: NORVASC PO SCH ×2 (08:47→22:19)
[2016-12-21] MEDS: CYMBALTA PO SCH (08:47)
[2016-12-21] MEDS ORDERED: DURAGESIC 100 MICROGM/HR PATCH TD SCH ×2 (09:00→13:30)
[2016-12-21] MEDS: PHENERGAN IV PRN (09:40)
[2016-12-21] MEDS: LOVENOX SUBQ SCH (09:41)
[2016-12-21] MEDS ORDERED: FLEET MINERAL OIL ENEMA PR ONE (11:31)
--- NOTE | 2016-12-21 12:04 | PROGRESS NOTE ---
DATE: 12/21/2016 SUBJECTIVE: This patient is a little bit somnolent right now because he just received treatment with Phenergan, family member at the bedside, his son. This patient is oriented x3. He is still complaining of pain but compared with admission is better. He has been having nausea, and he vomited today. OBJECTIVE: Vital signs: Temperature is 98.5, pulse 77, respiratory rate 18, blood pressure 166/93, oxygen saturation is 99% on room air. HEENT: Head is normocephalic. No trauma. PERRLA. Neck: Supple. No JVD. No masses. Central trachea. Chest: Clear to auscultation. No wheezing, no rales. Abdomen: Soft, mildly distended, nontender to palpation. Positive bowel sounds. Extremities: No edema, no clubbing, no cyanosis. Neurologic: The patient is sleepy but arousable, oriented x3. He is following commands. DIAGNOSTIC DATA: WBC is 10.3, hemoglobin 14.8, hematocrit 45.4, platelets 169. Sodium 137, potassium 3.6, chloride 100, bicarbonate 28, BUN is 18, creatinine 0.6, glucose 79, calcium 8.3. Albumin is 3. ASSESSMENT AND PLAN: 1. Metastatic melanoma with bony metastasis. We will continue following the recommendations of Hematology/Oncology Department. Continue with pain medication. 2. Intractable pain. This patient has a AR[employer] OFFICER pump and also p.r.n. Dilaudid for pain. 3. Nausea and vomiting. Continue with Phenergan. 4. Constipation. We have a CT scan that showed constipation even though he has been receiving treatment for this. I will order an enema, and I will continue to monitor. 5. Hypertension. Continue with clonidine patch and amlodipine. I will add hydralazine to his medications. 6. Leukocytosis. Improved. 7. DVT prophylaxis. Continue on Lovenox. 8. GI prophylaxis. Continue with IV Protonix. cc: Sukumar Trevino MD
[2016-12-21] MEDS ORDERED: ZOFRAN IV PRN ×2 (13:26→13:44)
[2016-12-21] MEDS ORDERED: CITRATE OF MAGNESIA PO ONE (13:27)
[2016-12-21] MEDS ORDERED: D5W IV PRN (13:44)
[2016-12-21] MEDS: LR 1,000 ML IV SCH (15:39)
[2016-12-21] MEDS: APRESOLINE PO SCH ×3 (15:40→17:51)
[2016-12-21] MEDS: DULCOLAX PR SCH ×2 (15:41→22:19)
[2016-12-21] MEDS: SODIUM CHLORIDE 0.9% INJ SCH ×2 (15:46→22:20)
[2016-12-21] MEDS: PROTONIX IV SCH ×2 (15:46→22:20)
[2016-12-21] MEDS: D5W IV SCH (17:57)
[2016-12-21] MEDS: ZOFRAN IV SCH (17:57)
[2016-12-21] MEDS: DILAUDID IV PRN ×2 (19:40→22:20)
[2016-12-21] MEDS ORDERED: CITRATE OF MAGNESIA PO PRN (22:00)
[2016-12-22] MEDS: DULCOLAX PR SCH ×2 (00:29→08:18)
[2016-12-22] MEDS: DILAUDID IV PRN ×3 (01:45→21:32)
[2016-12-22] MEDS: DILAUDID PCA VIAL IV PRN ×2 (05:22→21:34)
[2016-12-22 06:44] LABS: MANUAL DIFF NEEDED? NO
[2016-12-22 06:52] LABS: BASO% 0.1 % (0.0-0.8); EOS# 0.43 X1000 (0.0-0.7); EOS% 4.6 % (0.0-10.0); HEMATOCRIT 45.3 % (42.0-52.0); HEMOGLOBIN 14.9 g/dL (14.0-18.0); IMM GRAN# 0.04 X1000 (0.0-0.04); IMM GRAN% 0.4 % (0.0-0.5); LYMPH# 0.73 X1000 (1.2-3.4); LYMPH% 7.8 % (20.5-51.1); MCH 30.2 PG (27-31); MCHC 32.9 g/dL (33-37); MCV 91.9 FL (81-99); MONO# 1.34 X1000 (0.11-0.59); MONO% 14.4 % (1.7-9.3); MPV 9.9 FL (7.4-10.4); NEUT% 72.7 % (42.2-75.2); PLT 169 X1000 (130-400); RBC 4.93 XMIL (4.7-6.1)
[2016-12-22 07:16] LABS: AGAP 9; ALBUMIN 3.3 g/dL (3.5-5.0); ALKALINE PHOSPHATASE 80 U/L (32-122); BUN 19 mg/dL (8-22); CALCIUM 8.8 mg/dL (8.8-10.2); CHLORIDE 92 mmol/L (98-107); COSMO 269; GOT 15 U/L (10-34); GPT 28 U/L (10-44); POTASSIUM 3.7 mmol/L (3.5-5.1); SODIUM 132 mmol/L (136-145); TCO2 31 mmol/L (25-35); TOTAL BILIRUBIN 0.67 mg/dL (0.20-1.00); TOTAL PROTEIN 6.4 g/dL (6.3-8.3)
[2016-12-22] MEDS: NORVASC PO SCH ×2 (08:18→21:31)
[2016-12-22] MEDS: CYMBALTA PO SCH (08:18)
[2016-12-22] MEDS: DULCOLAX PO SCH (08:18)
[2016-12-22] MEDS: LACTULOSE PO SCH (08:19)
[2016-12-22] MEDS: MILK OF MAGNESIA PO SCH (08:19)
[2016-12-22] MEDS: DECADRON IV SCH (08:19)
[2016-12-22] MEDS: MIRALAX PO SCH ×2 (08:19→21:32)
[2016-12-22] MEDS: APRESOLINE PO SCH ×3 (08:19→16:31)
[2016-12-22] MEDS: LOVENOX SUBQ SCH (11:03)
[2016-12-22] MEDS: LR 1,000 ML IV SCH ×2 (11:03→16:31)
[2016-12-22] MEDS ORDERED: DURAGESIC 100 MICROGM/HR PATCH TD ONE (11:30)
--- NOTE | 2016-12-22 12:51 | PROGRESS NOTE ---
DATE: 12/22/2016 SUBJECTIVE: This patient looks a little bit better today. He is still complaining about pain but, compared with yesterday, it is better. No nausea or vomiting today. He has been having small bowel movements, and he has been walking to the bathroom with assistance. This patient is alert and oriented x3. OBJECTIVE: Vital Signs: Temperature 98 degrees, pulse 98, respiratory rate 18, blood pressure 148/80. O2 saturation 95% on room air. HEENT: Head normocephalic. No trauma. PERRLA. Neck supple. No JVD. No masses. Central trachea. Chest clear to auscultation. No wheezing. No rales. Abdomen is soft. Mildly distended. Nontender to palpation. Positive bowel sounds. Extremities: No edema. No clubbing. No cyanosis. Neurologic: The patient is alert and oriented x3. No focal deficits. LABORATORY: WBC 9.3, hemoglobin 14.9, hematocrit 45.3, platelets 169,000. Sodium 132, potassium 3.7, chloride 92. Bicarbonate 31. BUN 19, creatinine 0.8, glucose 146. Calcium 8.8. Albumin 3.3. ASSESSMENT AND PLAN: 1. Metastatic melanoma with bony metastasis. We will continue following the recommendations of Hematology/Oncology Department. This patient is on a ENZYME CHEMIST pump, and he is doing better. We will continue with the same treatment for now. We will wait for oncology evaluation today. 2. Intractable pain. This is getting better. Continue with the ENZYME CHEMIST pump. 3. Nausea and vomiting. He is not complaining of nausea or vomiting today, and he is tolerating p.o. 4. Constipation. He has been having small bowel movements. We will continue with stool softener. 5. Hypertension. Continue with the same management, stable. 6. Leukocytosis, improved. 7. Deep venous thrombosis prophylaxis. Continue on Lovenox. 8. Gastrointestinal prophylaxis. Continue with IV Protonix. cc: Sukumar Trevino MD
[2016-12-22] MEDS: SODIUM CHLORIDE 0.9% INJ SCH ×2 (13:19→21:32)
[2016-12-22] MEDS: PROTONIX IV SCH ×2 (13:19→21:32)
[2016-12-22] MEDS: CATAPRES-TTS-1 TD SCH (13:19)
[2016-12-22] MEDS: D5W IV SCH (16:31)
[2016-12-22] MEDS: ZOFRAN IV SCH (16:31)
[2016-12-23] MEDS: DILAUDID IV PRN ×2 (02:40→22:05)
[2016-12-23 06:47] LABS: MANUAL DIFF NEEDED? NO
[2016-12-23 06:55] LABS: BASO% 0.3 % (0.0-0.8); EOS# 0.54 X1000 (0.0-0.7); HEMATOCRIT 42.4 % (42.0-52.0); HEMOGLOBIN 13.7 g/dL (14.0-18.0); IMM GRAN# 0.03 X1000 (0.0-0.04); IMM GRAN% 0.4 % (0.0-0.5); LYMPH% 10.3 % (20.5-51.1); MCHC 32.3 g/dL (33-37); MCV 92.8 FL (81-99); MONO% 14.2 % (1.7-9.3); MPV 9.6 FL (7.4-10.4); NEUT% 67.8 % (42.2-75.2); PLT 159 X1000 (130-400); RBC 4.57 XMIL (4.7-6.1)
[2016-12-23 07:18] LABS: AGAP 7; BUN 18 mg/dL (8-22); CALCIUM 9.2 mg/dL (8.8-10.2); CHLORIDE 97 mmol/L (98-107); COSMO 274; POTASSIUM 3.9 mmol/L (3.5-5.1); SODIUM 136 mmol/L (136-145); TCO2 32 mmol/L (25-35)
[2016-12-23] MEDS: LR 1,000 ML IV SCH ×2 (09:13→15:37)
[2016-12-23] MEDS: LOVENOX SUBQ SCH (09:14)
[2016-12-23] MEDS: APRESOLINE PO SCH ×3 (09:14→16:34)
[2016-12-23] MEDS: DECADRON IV SCH (09:14)
[2016-12-23] MEDS: CYMBALTA PO SCH (09:14)
[2016-12-23] MEDS: NORVASC PO SCH ×2 (09:15→22:04)
[2016-12-23] MEDS: MIRALAX PO SCH ×2 (09:15→22:05)
[2016-12-23] MEDS: DILAUDID PO PRN ×7 (11:02→17:41)
[2016-12-23] MEDS: SODIUM CHLORIDE 0.9% INJ SCH ×2 (11:03→23:11)
[2016-12-23] MEDS: PROTONIX IV SCH ×2 (11:03→23:11)
--- NOTE | 2016-12-23 11:23 | PROGRESS NOTE ---
DATE: 12/23/2016 SUBJECTIVE: This patient looks better today. He still complaining about pain but compared with the admission and yesterday it is much better. No nausea or vomiting today. He has been having small bowel movements, some of them liquid. He has been walking to the bathroom with assistance. This patient is alert and oriented x3. OBJECTIVE: Vital Signs: Temperature 98.4 degrees, pulse 75, blood pressure 114/75, oxygen saturation 98 on room air. HEENT: Head normocephalic. No trauma. PERRLA. Neck: Supple. No JVD. No masses. Central trachea. Chest: Clear to auscultation. No wheezing. No rales. Abdomen: Soft. Mildly distended. Nontender to palpation. Positive bowel sounds. Extremities: No edema. No clubbing. No cyanosis. Neurological: The patient is alert and oriented x3. No focal deficits. LABORATORY: WBC 7.7, hemoglobin 13.7, hematocrit 42.4, platelets 159,000. Sodium 136, potassium 3.9, chloride 97, bicarbonate 32, BUN 18, creatinine 0.8, glucose 104, calcium 9.2. ASSESSMENT AND PLAN: 1. Metastatic melanoma with bony metastasis. We will continue to follow the recommendation of hematology/oncology department. Today we will hopefully stop the OPERATIONS PLANT ATTENDANT pump and due the conversion to p.o. medications. So if this patient is doing good tomorrow, he can be discharged. 2. Intractable pain. As above. 3. Nausea and vomiting, resolved. 4. Constipation. Continue with stool softener. 5. Hypertension. Continue with the same management. Stable. 6. Leukocytosis. 7. Deep vein thrombosis prophylaxis. Continue on Lovenox. 8. Gastrointestinal prophylaxis. Continue with IV Protonix. 9. Case discussed with Dr. Acuña. We will try to stop the OPERATIONS PLANT ATTENDANT pump today and put him on p.o. medication. If this patient is good tomorrow, we are going to be able to discharge him home. cc: Sukumar Trevino MD
[2016-12-23] MEDS: DILAUDID PCA VIAL IV PRN ×2 (11:48→23:15)
[2016-12-23] MEDS ORDERED: CITRATE OF MAGNESIA PO ONE (13:49)
[2016-12-23] MEDS: DULCOLAX PR SCH ×2 (14:35→22:03)
[2016-12-23] MEDS: ZOFRAN IV SCH (16:34)
[2016-12-23] MEDS: D5W IV SCH (16:34)
--- NOTE | 2016-12-23 21:26 | PROGRESS NOTE ---
DATE: 12/23/2016 HPI: Patient reports that his pain is better controlled over the last 24 hours. Nurse reports that he still needed 26 mg of IV Dilaudid. He has not had any bowel movements over the last 2 days. He denies any constipation. He is passing gas. He is passing mucus. PHYSICAL EXAMINATION: Vital Signs: Temperature 98.4, pulse 75, blood pressure 114/75. Eyes: EOMI. PERRLA. Anicteric. Mucous membranes are moist. Cardiac Exam: Regular rate and rhythm. Normal S1, S2. Chest: Clear to auscultation. Abdomen: Soft, nontender, without hepatosplenomegaly or masses. Extremities: Without edema. Neurological: Alert and oriented x 3. Moving all 4 extremities. LABORATORY DATA: White count 7.7 hemoglobin 13.7, platelets 159,000, BUN 18, creatinine 0.8. ASSESSMENT/PLAN: 1. Metastatic melanoma: He is due for his next dose of opdivo and yervoy this coming week Saturday. Hopefully, we can get him discharged for his therapy. 2. Severe thoracic back pain due to bone metastasis: On radiation at this time. With pain management his pain seems to be decreasing. 3. Pain management: He is currently on Duragesic patch 400 mcg daily. We will try to change his Dilaudid IV to oral. He will take 8 mg every hour as needed for pain management. If he tolerates oral medications well in the next 24 hours, will consider disposition. 4. Deep venous thrombosis prophylaxis: On Lovenox. Continue the same. 5. Constipation: Continue Dulcolax suppositories and magnesium titrate p.r.n. cc: Bruno Acuña MD [facility]
[2016-12-24] MEDS: DULCOLAX PR SCH ×3 (03:51→13:46)
[2016-12-24 07:13] LABS: AGAP 9; BUN 16 mg/dL (8-22); CALCIUM 8.9 mg/dL (8.8-10.2); CHLORIDE 95 mmol/L (98-107); COSMO 274; POTASSIUM 3.9 mmol/L (3.5-5.1); SODIUM 135 mmol/L (136-145); TCO2 31 mmol/L (25-35)
[2016-12-24] MEDS ORDERED: DURAGESIC 100 MICROGM/HR PATCH TD SCH (09:00)
--- NOTE | 2016-12-24 09:08 | PROGRESS NOTE ---
DATE: 12/24/2016 SUBJECTIVE: Patient reports that his pain is reasonably well controlled. Yesterday, we tried to put him on oral Dilaudid but very soon after he developed nausea and could not tolerate this. He has been taking IV Dilaudid as needed. He had a bowel movement with magnesium citrate. No other complaints today. PHYSICAL EXAMINATION: Vital signs: Temperature 98.4 degrees, pulse 87, blood pressure 136/95. HEENT: Eyes: EOMI. PERRLA. Anicteric. Mucous membranes are moist. Cardiac Exam: Regular rate and rhythm. Normal S1, S2. Chest: Clear to auscultation. Abdomen: Soft, nontender, without hepatosplenomegaly. LABS: BUN 16, creatinine 0.9. ASSESSMENT AND PLAN: 1. Metastatic melanoma: Due for next cycle of chemotherapy in 2 days. 2. Pain management: Still having great difficulty with pain. Unable to tolerate oral pain medicines due to significant nausea. I will discuss this further with pain management and see what we can do about a pain pump for him. 3. Thoracic metastasis causing severe pain: Currently undergoing radiation. Due to complete 10 treatments this , I believe. 4. Deep vein thrombosis prophylaxis: On Lovenox. cc: Bruno Acuña MD
[2016-12-24] MEDS: LR 1,000 ML IV SCH ×2 (09:19→15:01)
[2016-12-24] MEDS: CYMBALTA PO SCH (09:21)
[2016-12-24] MEDS: LOVENOX SUBQ SCH (09:21)
[2016-12-24] MEDS: MIRALAX PO SCH (09:21)
[2016-12-24] MEDS: APRESOLINE PO SCH ×3 (09:21→16:49)
[2016-12-24] MEDS: NORVASC PO SCH (09:21)
[2016-12-24] MEDS: DECADRON IV SCH (09:22)
[2016-12-24] MEDS: DILAUDID IV PRN (09:54)
[2016-12-24] MEDS: DILAUDID PCA VIAL IV PRN (12:15)
[2016-12-24] MEDS: PROTONIX IV SCH (12:23)
[2016-12-24] MEDS: SODIUM CHLORIDE 0.9% INJ SCH (12:23)
[2016-12-24] MEDS: D5W IV SCH (16:49)
[2016-12-24] MEDS: ZOFRAN IV SCH (16:49)
[2016-12-24 17:16] VITALS: BP 126/79
--- NOTE | 2017-01-03 09:16 | DISCHARGE SUMMARY ---
ADMISSION DATE: 12/12/2016 DISCHARGE DATE: 12/24/2016 FINAL DISCHARGE DIAGNOSES: 1. Intractable pain secondary to bone metastasis. 2. Metastatic melanoma. 3. Constipation. 4. Hypertension. 5. Leukocytosis secondary to steroids. CONSULTATIONS REQUESTED DURING THIS HOSPITAL STAY: 1. Oncology consultation with Dr. Acuña. 2. Radiation oncology consultation with Dr. Ribeiro. HOSPITAL COURSE: Mr. Funez is a 56-year-old male with metastatic melanoma with extensive pelvic bone metastasis who presented to the ER with a chief complaint of persistent and intractable pain. The patient was admitted to the hospitalist service and Dr. Acuña was consulted for further recommendations. The patient was initially started on IV Dilaudid. However, that was not controlling the patient's pain so the patient was ultimately placed on a Dilaudid REGULATORY INTERNSHIP. Again, that was not enough to control the patient's pain so fentanyl was also initiated. Radiation oncology was consulted. The patient was also started on radiation treatments to see if that would help with the patient's metastatic pain. Several attempts were made to wean the patient off of the Dilaudid REGULATORY INTERNSHIP. However, the patient's pain would increase. The case was discussed with Dr. Jose Cabrera, the pain management physician in [place], and it was decided that the patient would benefit from a pain pump placement. The patient was ultimately cleared for discharge home on 12/24/2016 with a pain pump that will be managed by [facility] and the patient also has an appointment with Dr. Jose Cabrera to have an implantable pain pump placed. DISCHARGE MEDICATIONS: 1. Norvasc 5 mg p.o. twice a day. 2. Dulcolax 10 mg per rectum every 6 hours. 3. Catapres TTS-1 every 7 days. 4. Fentanyl 400 mcg every 72 hours. 5. Hydralazine 25 mg p.o. 3 times a day. 6. Dilaudid REGULATORY INTERNSHIP. 7. Zofran ODT 16 mg p.o. daily. 8. Cymbalta 60 mg p.o. every morning. 9. MiraLAX 17 g p.o. twice a day. DISCHARGE DIET: Regular diet. DISCHARGE INSTRUCTIONS: The patient is scheduled to follow up with Dr. Jose Cabrera for implementation of a pain pump. The patient will also need to follow up with Dr. Acuña as scheduled by his clinic. cc: Donna Pascual MD
== END 2016-12-24 19:03 | disposition home or self-care (01) ==
LOC: P.ED 07:56 → 3N 07:57 → SUATTDRO 07:57
PROVIDERS: ATTEND Internal Medicine